=== PATIENT | male | born 1990 ===

== ENCOUNTER 2021-05-06 08:00 | Emergency (ER) | payer SELFPAY ==
--- NOTE | 2021-05-06 08:55 | Event Note ---
ED Screening Note Date of service: 05/06/21 Time: 08:54 ED Screening Note: 31 yo male with pmhx of schizophrenia and bipolar presenting with auditory hallucinations x 5 weeks, denies SI/HI, AH/VH. feels safe at home. Has PCP that prescribes psych meds. This initial assessment/diagnostic orders/clinical plan/treatment(s) is/are subject to change based on patients health status, clinical progression and re- assessment by fellow clinical providers in the ED. Further treatment and workup at subsequent clinical providers discretion. Patient/guardian urged not to elope from the ED as their condition may be serious if not clinically assessed and managed. Initial orders include: psych evaluation.
--- NOTE | 2021-05-06 09:43 | Emergency Department Report ---
ED Psych HPI - General Chief Complaint: Psych Stated Complaint: HEARING AIDE NOT FUNCIONAL Time Seen by Provider: 05/06/21 09:04 Source: patient Mode of arrival: Ambulatory - History of Present Illness Initial Comments: 31 yo male with pmhx of schizophrenia and bipolar presenting with auditory hallucinations in his left ear x 5 weeks, denies SI/HI, VH. feels safe at home. Has PCP that prescribes psych meds. He reports he feels as if somebody put a tracker in his left ear and has been hearing voices since. He denies any other symptoms. Denies any associated fever, chills, night sweats, headache, dizziness, blurred vision, nausea,, diarrhea, chest pain or shortness of breath, weakness or any other associated symptoms. - Related Data Allergies Allergy/AdvReac Type Severity Reaction Status Date / Time No Known Allergies Allergy Unverified 05/06/21 08:52 ED Review of Systems ROS: Stated complaint: HEARING AIDE NOT FUNCIONAL Other details as noted in HPI Comment: All other systems reviewed and negative Constitutional: denies: chills, fever Eyes: denies: eye pain, eye discharge, vision change ENT: denies: ear pain, throat pain Respiratory: denies: cough, shortness of breath, wheezing Cardiovascular: denies: chest pain, palpitations Endocrine: no symptoms reported Gastrointestinal: denies: abdominal pain, nausea, diarrhea Genitourinary: denies: urgency, dysuria Musculoskeletal: denies: back pain, joint swelling, arthralgia Skin: denies: rash, lesions Neurological: denies: headache, weakness, paresthesias Psychiatric: as per HPI, auditory hallucinations. denies: anxiety, depression Hematological/Lymphatic: denies: easy bleeding, easy bruising ED Past Medical Hx - Past Medical History Previous Medical History?: Yes - Surgical History Past Surgical History?: No - Family History Family history: no significant - Social History Substance Use Type: None ED Physical Exam - General Limitations: No Limitations General appearance: alert, in no apparent distress - Head Head exam: Present: atraumatic, normocephalic - Eye Eye exam: Present: normal appearance, PERRL, EOMI Pupils: Present: normal accommodation - ENT ENT exam: Present: normal exam, normal orophraynx, mucous membranes moist, TM's normal bilaterally - Neck Neck exam: Present: normal inspection, tenderness. Absent: meningismus, full ROM - Respiratory Respiratory exam: Present: normal lung sounds bilaterally. Absent: respiratory distress, wheezes, rales, rhonchi, stridor - Cardiovascular Cardiovascular Exam: Present: regular rate, normal rhythm. Absent: systolic murmur, diastolic murmur, rubs, gallop - GI/Abdominal GI/Abdominal exam: Present: soft, normal bowel sounds. Absent: distended, tenderness, guarding, rebound, rigid - Rectal Rectal exam: Present: deferred - Extremities Exam Extremities exam: Present: normal inspection, full ROM, normal capillary refill. Absent: tenderness - Back Exam Back exam: Present: normal inspection, full ROM. Absent: tenderness, CVA tenderness (R) - Neurological Exam Neurological exam: Present: alert, oriented X3, CN II-XII intact, normal gait - Psychiatric Psychiatric exam: Present: normal affect, normal mood, flat affect - Skin Skin exam: Present: warm, dry, intact, normal color. Absent: rash ED Course Vital Signs 05/06/21 05/06/21 05/06/21 08:48 08:52 09:29 Temperature 98.4 F 98.5 F Pulse Rate 101 H 98 H Respiratory 16 18 Rate Blood Pressure 126/86 Blood Pressure 134/85 [Right] O2 Sat by Pulse 98 Oximetry 05/06/21 11:48 Temperature Pulse Rate Respiratory 16 Rate Blood Pressure Blood Pressure [Right] O2 Sat by Pulse 97 Oximetry - Reevaluation(s) Reevaluation #1: 05/06/21 09:42 Patient is well-appearing, nontoxic in no acute distress. Exam is unremarkable. Patient is very reasonable, alert and oriented x3. He has normal thought content and is able to articulate his thoughts well. He denies any suicidal or homicidal ideations, visual hallucinations and denies that the voices are telling him to harm himself or anyone else. He thinks it may be a tracker in his ear. He does have a primary care doctor and good follow-up. He reports he feels safe at home. Reevaluation #2: 05/06/21 12:03 Psych also saw the patient and agrees that he is stable for outpatient discharge and follow-up with his primary care doctor. Patient and family were agreeable this plan. All questions were answered. ED Medical Decision Making - Differential Diagnosis Psychosis, bipolar disorder, schizophrenia. Critical care attestation.: If time is entered above; I have spent that time in minutes in the direct care of this critically ill patient, excluding procedure time. ED Disposition Clinical Impression: Auditory hallucinations Disposition: 01 HOME / SELF CARE / HOMELESS Is pt being admited?: No Condition: Stable Instructions: Schizoaffective Disorder Referrals: PHU CARPIO NP [Primary Care Provider] - 3-5 Days Time of Disposition: 12:03
--- NOTE | 2021-05-06 11:59 | Consultation ---
History of Present Illness - Reason for Consult Consult date: 05/06/21 Reason for consult: hallucinations - History of Present Psychiatric Illness The patient was seen, he is calm and cooperative. He is polite. The patient says he is hearing a speaker in his ear. He says his right ear is painful. The patient says he feels that he needs a CT. He says he hears derogative remarks in his ear. I ask him did he feel threatened by it or was it telling him to harm himself. He says "no, it's not telling me to do anything to myself or anybody." He says this started "about 5 weeks ago." I asked him why didn't he talk to his psychiatrist, the patient says "because I felt it was medical. My ear hurts I didn't think a psychiatrist could fix this." He says he lives at [facility] and wanted to have his ear checked out. The patient says he has a history of bipolar and is complaint with his medications. I recommended to the patient to increase his meds. He could not think of them at the time. He says "I know them, but just can't recall them." He says "but my meds are fine. I don't need an increase or an inpatient treatment." He denies any illicit drug use or alcohol. PAST PSYCHIATRIC HISTORY Diagnoses: Bipolar Suicide attempts or Self-harm behavior: Denies Prior psychiatric hospitalizations: Denies Substance Abuse history: Denies Previous psychiatric medications tried: could not recall Outpatient treatment: Yes PAST MEDICAL HISTORY: None reported Family Psychiatric History: None reported or documented SOCIAL HISTORY Living arrangement: [facility] Marital status: Single Employment status: Unemployed REVIEW OF SYSTEMS Constitutional: Negative for weight loss ENT: Negative for stridor Respiratory: Negative for cough or hemoptysis All other systems reviewed and are negative MENTAL STATUS EXAMINATION General Appearance and Behavior: Age appropriate, good hygiene, wearing appropriate clothes, good eye contact, calm, cooperative Cooperation: Participating/engaged, but Guarded Psychomotor Behavior: Psychomotor normal Mood: okay Affect and affective range: congruent with stated mood Thought Process: goal directed Thought Content: None Speech: normal tone and pace Suicidal Ideation: Denies Homicidal Ideation: Denies Hallucinations: Auditory Delusions: None elicited Impulse Control: Normal Insight and Judgment: Limited insight and judgment Memory: Limited Attention: Attentive Orientation: Alert, oriented Assessment and Plan Bipolar Disorder Treatment Resume home meds. Sitter: Per primary Medical: Per primary Disposition: Do not recommend acute psychiatric inpatient treatment. The patient can be managed on an outpatient basis He is to follow up with his outpatient psychiatrist in 7 to 14 days upon discharge Will sign off. Thank you for this consult Case staffed with Dr. Hahn Medications and Allergies Allergies Allergy/AdvReac Type Severity Reaction Status Date / Time No Known Allergies Allergy Unverified 05/06/21 08:52 Mental Status Exam - Vital signs Last Vital Signs Temp 98.5 F 05/06/21 09:29 Pulse 98 H 05/06/21 09:29 Resp 18 05/06/21 09:29 BP 134/85 05/06/21 09:29 Pulse Ox 98 05/06/21 08:48 Results All other labs normal.
[2021-05-06 12:58] VITALS: BP 130/82
== END 2021-05-06 12:58 | disposition home or self-care (01) ==
LOC: ED 08:00
DX: R44.0 Auditory hallucinations (principal); F31.9 Bipolar disorder, unspecified
CPT/HCPCS: 99283